=== PATIENT | female | born 1995 | race African-American/Black ===

== ENCOUNTER 2016-08-09 10:37 | Emergency (ER) | payer MEDICAID ==
[~2016-08-09] VITALS: Ht 149.9 cm; Wt 51.5 kg
[~2016-08-09 10:37] MED LIST: PRED1SUS RIGHT EYE
[2016-08-09 10:39] VITALS: BP 104/58; PULSE 92; RESP 16; TEMP 98.2; O2SAT 99
[2016-08-09] MEDS ORDERED: SODIUM CHLOR 0.9% 1000 ML INJ 1,000 ML IV SCH (10:58)
[2016-08-09] MEDS ORDERED: ONDANSETRON HCL 4 MG/2 ML VIAL IVP ONE (11:00)
[2016-08-09] MEDS ORDERED: SODIUM CHLORIDE 0.9% FLUSH 10 ML FLUSH IV FLUSH PRN (11:00)
--- NOTE | 2016-08-09 11:00 | PD ---
HPI Chief Complaint: GI Complaint Time Seen by Provider: 10:51 Travel History International Travel<30 days: No Contact w/Intl Traveler<30days: No Traveled to known affect area: No History of Present Illness HPI 21-year-old female here for evaluation of abdominal pain, constipation, nausea, and vomiting. The patient reports that she has not had a bowel movement in one week. She had 3 episodes of vomiting throughout the week, last vomited today. She was sent home from work today because she vomited there. No history of abdominal surgeries. No vaginal bleeding or discharge. No urinary symptoms. LMP was in June of this year. She states that she could be . Abdominal pain is diffuse, mild to moderate, cramping in nature. PFSH Past Medical History Diminished Hearing: No ?: Not LMP: 06/2016 Social History Alcohol Use: No Tobacco Use: No Substance Use: No Allergies-Medications (Allergen,Severity, Reaction): Coded Allergies: No Known Allergies (Unverified , 08/09/16) Reported Meds & Prescriptions Reported Meds & Active Scripts Active Reported Pred Forte Opth Drops (Prednisolone Acetate Opth Drops) 1% Susp 1 Drop RIGHT EYE QID Review of Systems Except as stated in HPI: all other systems reviewed are Neg Physical Exam Narrative GENERAL: Well-developed, well-nourished, comfortable, no acute distress. SKIN: Focused skin assessment warm/dry. HEAD: Atraumatic. Normocephalic. EYES: Pupils equal and round. No scleral icterus. No injection or drainage. ENT: Mucous membranes pink and moist. CARDIOVASCULAR: Regular rate and rhythm. No murmur appreciated. RESPIRATORY: No accessory muscle use. Clear to auscultation. Breath sounds equal bilaterally. GASTROINTESTINAL: Abdomen soft, nondistended. Mild diffuse tenderness without peritoneal signs. Normal bowel sounds. MUSCULOSKELETAL: No obvious deformities. No clubbing. No cyanosis. No edema. NEUROLOGICAL: Awake and alert. No obvious cranial nerve deficits. Motor grossly within normal limits. Normal speech. PSYCHIATRIC: Appropriate mood and affect; insight and judgment normal. Data Data Last Documented VS Vital Signs Date Time Temp Pulse Resp B/P Pulse Ox O2 Delivery O2 Flow Rate FiO2 08/09/16 11:13 98 Room Air 08/09/16 10:39 98.2 92 16 104/58 Orders Beta Hcg (Quant/Titer) (08/09/16 10:58) Complete Blood Count With Diff (08/09/16 10:58) Comprehensive Metabolic Panel (08/09/16 10:58) Lipase (08/09/16 10:58) Urinalysis - C+S If Indicated (08/09/16 10:58) Iv Access Insert/Monitor (08/09/16 10:58) Ecg Monitoring (08/09/16 10:58) Oximetry (08/09/16 10:58) Ondansetron Inj (Zofran Inj) (08/09/16 11:00) Sodium Chlor 0.9% 1000 Ml Inj (Ns 1000 M (08/09/16 10:58) Sodium Chloride 0.9% Flush (Ns Flush) (08/09/16 11:00) Ed Urine Pregnancytest Poc (08/09/16 10:58) Type And Screen (08/09/16 11:18) Us Pelvis (Ques Pr/Ect)W Trans (08/09/16 ) Labs Laboratory Tests Test 08/09/16 08/09/16 11:10 11:15 White Blood Count 11.6 TH/MM3 Red Blood Count 5.12 MIL/MM3 Hemoglobin 13.2 GM/DL Hematocrit 39.9 % Mean Corpuscular Volume 77.9 FL Mean Corpuscular Hemoglobin 25.7 PG Mean Corpuscular Hemoglobin 33.1 % Concent Red Cell Distribution Width 14.6 % Platelet Count 330 TH/MM3 Mean Platelet Volume 8.7 FL Neutrophils (%) (Auto) 72.0 % Lymphocytes (%) (Auto) 19.8 % Monocytes (%) (Auto) 6.7 % Eosinophils (%) (Auto) 0.8 % Basophils (%) (Auto) 0.7 % Neutrophils # (Auto) 8.4 TH/MM3 Lymphocytes # (Auto) 2.3 TH/MM3 Monocytes # (Auto) 0.8 TH/MM3 Eosinophils # (Auto) 0.1 TH/MM3 Basophils # (Auto) 0.1 TH/MM3 CBC Comment DIFF FINAL Differential Comment Urine Color YELLOW Urine Turbidity CLEAR Urine pH 5.5 Urine Specific [place] 1.019 Urine Protein TRACE mg/dL Urine Glucose (UA) NEG mg/dL Urine Ketones 10 mg/dL Urine Occult Blood NEG Urine Nitrite NEG Urine Bilirubin NEG Urine Urobilinogen LESS THAN 2.0 MG/DL Urine Leukocyte Esterase NEG Urine RBC LESS THAN 1 /hpf Urine WBC 1 /hpf Urine Squamous Epithelial 2 /hpf Cells Urine Mucus FEW /lpf Microscopic Urinalysis Comment CULT NOT INDICATED Sodium Level 137 MEQ/L Potassium Level 3.7 MEQ/L Chloride Level 103 MEQ/L Carbon Dioxide Level 26.5 MEQ/L Anion Gap 8 MEQ/L Blood Urea Nitrogen 6 MG/DL Creatinine 0.73 MG/DL Estimat Glomerular Filtration 121 ML/MIN Rate Random Glucose 84 MG/DL Calcium Level 8.6 MG/DL Total Bilirubin 0.5 MG/DL Aspartate Amino Transf 12 U/L (AST/SGOT) Alanine Aminotransferase 20 U/L (ALT/SGPT) Alkaline Phosphatase 60 U/L Total Protein 7.7 GM/DL Albumin 3.9 GM/DL Lipase 55 U/L Human Chorionic Gonadotropin, [address] MIU/ML Quant Blood Type O NEGATIVE Antibody Screen NEGATIVE Blood Bank Comment MDM Medical Decision Making Medical Screen Exam Complete: Yes Emergency Medical Condition: Yes Differential Diagnosis Constipation, bowel obstruction, , ectopic , metabolic abnormality Narrative Course Vital signs show heart rate 92, blood pressure 104/58, pulse ox 99% on room air , oral temp of 98.2F. CBC is essentially unremarkable. CMP is unremarkable. Lipase is 55. Beta hCG is 75,954. Blood type is O-. UA shows 10 ketones, few mucus, not suggestive of UTI. Pelvic ultrasound: CONCLUSION: 1. Early intrauterine corresponding to 6 week 4 day menstrual age. There is a heart the of 126 beats per minute. 2. Ill-defined hypoechoic area adjacent to the gestational sac most characteristic of a subchorionic hemorrhage. 3. Complex small lesion in the right ovary which may represent a hemorrhagic cyst or complex corpus luteal cyst. Patient was made aware of all findings per she is resting comfortably. Although she is O-, there is no indication at this time for RhoGAM. There is no vaginal bleeding. Rectal exam was performed in the presence of a female nurse and shows no masses, no hemorrhoids, no fissures, no stool in rectal vault. Patient is resting comfortably. She is stable for discharge home with outpatient follow-up with an [employer] doctor this week. Pelvic rest endorsed. vitamins endorsed. She was informed on when to return to the emergency department. She verbalizes understanding and agreement with plan. Diagnosis Primary Impression: Early stage of Referrals: [facility] 1 week Additional Instructions: Follow-up with an [employer] doctor this week. Take vitamins. Stay hydrated with plenty of fluids. Return to the emergency department for worsening symptoms or any other concerns. Disposition: 01 DISCHARGE HOME Condition: Stable Cristiano Garcia MD Aug 09, 2016 11:00
[2016-08-09 11:13] VITALS: O2SAT 98
[2016-08-09 11:28] LABS: AUTOMATED NEUTROPHIL # 8.4 TH/MM3 (1.8-7.7); BASOPHIL # 0.1 TH/MM3 (0-0.2); BASOPHIL % 0.7 % (0.0-2.0); EOSINOPHIL # 0.1 TH/MM3 (0-0.4); EOSINOPHIL % 0.8 % (0.0-4.0); HEMATOCRIT 39.9 % (35.0-46.0); HEMO FLAGS DIFF FINAL; LYMPH % 19.8 % (9.0-44.0); LYMPHOCYTE # 2.3 TH/MM3 (1.0-4.8); MEAN CELL VOLUME 77.9 FL (80.0-100.0); MEAN CORPUSCULAR HEMOGLOBIN 25.7 PG (27.0-34.0); MEAN CORPUSCULAR HGB CONC 33.1 % (32.0-36.0); MONO % 6.7 % (0.0-8.0); PLATELET COUNT 330 TH/MM3 (150-450); RED BLOOD COUNT 5.12 MIL/MM3 (4.00-5.30); RED CELL DISTRIBUTION WIDTH 14.6 % (11.6-17.2); WHITE BLOOD COUNT 11.6 TH/MM3 (4.0-11.0)
[2016-08-09 11:37] LABS: BLOOD, URINE NEG (NEG); COMMENT (UR) CULT NOT INDICATED; CULTURE IF INDICATED CULT NOT INDICATED; GLUCOSE,URINE NEG (NEG); KETONE, URINE 10 mg/dL (NEG); MUCUS URINE FEW /lpf (OCC); NITRITE,URINE NEG (NEG); PH, URINE 5.5 (5.0-8.5); SQUAMOUS EPITHELIAL CELL URINE 2 /hpf (0-5); URINE COLOR YELLOW (YELLW/STRAW)
[2016-08-09 11:50] LABS: ANION GAP 8 MEQ/L (5-15); AST (GOT) 12 U/L (15-37); BICARBONATE 26.5 MEQ/L (21.0-32.0); BLOOD UREA NITROGEN 6 MG/DL (7-18); CHLORIDE 103 MEQ/L (98-107); GLOMERULAR FILTRATION RATE 121 ML/MIN (>89); POTASSIUM 3.7 MEQ/L (3.5-5.1); SODIUM (NA) 137 MEQ/L (136-145)
[2016-08-09 12:00] VITALS: BP 116/64; PULSE 87; RESP 16; TEMP 98.2; O2SAT 99
[2016-08-09 12:08] LABS: ALKALINE PHOSPHATASE 60 U/L (45-117); ALT (GPT) 20 U/L (10-53); BETA HCG QUANT 75954 MIU/ML (0-5); TOTAL BILIRUBIN ADULT 0.5 MG/DL (0.2-1.0)
--- NOTE | 2016-08-09 13:33 | RADRPT ---
EXAM DATE/TIME: 08/09/2016 12:31 [facility] COMPARISON: US PELVIS ([facility] PREG/ECTOPIC) W/TRANSVAG, January 30, 2014, 16:33. INDICATIONS : Nausea and vomiting with pressure in pelvis. LAB(S): Beta-hC MEDICAL HISTORY : . Asthma. SURGICAL HISTORY : None. ENCOUNTER: Initial ACUITY: 1 day PAIN SCORE: 0/10 LOCATION: Bilateral pelvis MEASUREMENTS: UTERUS: 10.1 x 6.6 x 6.2 cm ENDOMETRIAL STRIPE: 6 mm RIGHT OVARY: 5.2 x 3.7 x 2.1 cm LEFT OVARY: 4.0 x 2.3 x 1.9 cm FREE FLUID: Yes Small trace in posterior cul de sac. CROWN RUMP LENGTH: 0.7 = 6 WKS 4 DAYS FHR: 147 BPM FINDINGS: UTERUS: Single early intrauterine present. The crown rump lump corresponds to a 6 week 4 day menstrual age. heart rate of 126 beats per minute was obtained. There is an ill-defined h ypoechoic area along the gestational sac most characteristic of subchorionic hemorrhage. RIGHT OVARY: There is a complex 2.2 x 2.2 x 1.5 cm hypoechoic area with no color flow. This are p resent a complex corpus luteal cyst or hemorrhagic cyst. LEFT OVARY: Ovary contains no mass or significant cystic lesion. MISCELLANEOUS: No free fluid. CONCLUSION: 1. Early intrauterine corresponding to 6 week 4 day menstrual age. There is a heart t he of 126 beats per minute. 2. Ill-defined hypoechoic area adjacent to the gestational sac most characteristic of a subchorionic hemorrhage. 3. Complex small lesion in the right ovary which may represent a hemorrhagic cyst or complex corpus l uteal cyst. Zbigniew Naranjo MD on August 09, 2016 at 13:28 Board Certified Radiologist. This report was verified electronically.
[2016-08-09 14:00] VITALS: BP 110/67; PULSE 85; RESP 16; O2SAT 99
== END 2016-08-09 14:26 | disposition home or self-care (01) ==
LOC: NEPD 10:37
DX: O26.891 Other specified pregnancy related conditions, first trimester (principal); R10.9 Unspecified abdominal pain; Z3A.01 Less than 8 weeks gestation of pregnancy
CPT/HCPCS: 76700; 76817; 80053; 81001; 83690; 84702; 84703; 85025; 86850; 86900; 86901; 96361; 96374; 99284; J2405; J7030